=== PATIENT | female | born 1930 | race Caucasian/White ===

== ENCOUNTER 2017-10-20 18:34 | Inpatient (IN) | payer OTHER, MEDICARE ==
[~2017-10-20] VITALS: Ht 162.6 cm; Wt 68.3 kg
[~2017-10-20 18:34] MED LIST: 5-HTP100 MG PO; ADVAIR 500-501 EACH IH; ADVAIR 500/501 DISK IH; ADVANCED COLON CARE PO; ALBUTEROL SULF8.5 GM IH; ASACOL400 MG PO; ASPIRIN325 MG PO; BAL B-1001 EACH PO; BAYER ADVANCED500 MG PO; CALCIUM CITRAT250 MG PO; CLARINEX-D 241 EACH PO; CLARITIN,ALAVAR10 MG PO; COLACE100 MG PO; DELZICOL400 MG PO; DILAUDID2 MG PO; EFFEXOR75 MG PO; EYE DROPS ALLER15 ML BOTH EYES; FEVERALL325 M1 PR; GAS-X62.5 MG PO; GAVISCON ES CH1 EACH PO; HEALTHY EYES C1 EACH PO; KONSYL PSYLLIU3.4 GM PO; LEVOFLOXACIN750 MG PO; LEXAPRO10 MG PO; LIDEX60 G1 TP; LORAZEPAM1 MG PO; MAGNESIUM100 MG PO; MEGACE20 MG PO; METAMUCIL0.52 GM PO; METRONIDAZOLE500 MG PO; NASONEX17 GM BOTH NARES; PRAMIPEXOLE D0.25 M1 PO; PRILOSEC20 MG PO; PROBIOTIC 5 BI1 EACH PO; Proventil,Ventolin H IH; REFRESH OPTIVE10 ML BOTH EYES; REQUIP0.5 MG PO; REQUIP1 MG PO; RITALIN10 MG PO; RITALIN5 MG PO; SENNA LAXATIVE25 MG PO; SINGULAIR10 MG PO; SPIRIVA RESPIMAT4 GM IH; SPIRIVA1 INHALATI IH; TRAMADOL HCL50 MG PO; TRIAMCINOLONE A15 GM TP; TYLENOL REGULA325 MG PO; VITAMIN D32000 UNI1 PO; VITAMIN E400 UNIT PO; Vancocin Oral Soluti PO; ZOFRAN4 MG PO; [UNRECOGNIZED DRUG - OTHER] PO; magnesium PO
[2017-10-20 19:28] LABS: HEMATOCRIT 38.4 % (36.0-46.0); HEMOGLOBIN 12.1 G/DL (11.9-15.5); MCH 28.2 PG (29.0-34.0); MCHC 31.5 G/DL (30.0-36.0); MCV 89.5 FL (83-99); PLATELET COUNT 386 K/uL (156-360); RBC DIS.WIDTH-CV 16.8 % (11.8-14.6); RBC DIS.WIDTH-SD 54.9 % (39-53); RED BLOOD COUNT 4.29 M/uL (3.80-5.20); WHITE BLOOD COUNT 10.5 K/uL (4.1-10.2)
[2017-10-20 19:43] LABS: CHLORIDE 100 mEq/L (99-109); POTASSIUM 3.2 mEq/L (3.7-5.4); SODIUM 138 mEq/L (136-147)
[2017-10-20 19:45] LABS: GLUCOSE 228 mg/dL (70-99); TOTAL PROTEIN 6.9 g/dL (6.4-8.3)
[2017-10-20 19:47] LABS: TOTAL BILIRUBIN 0.2 mg/dL (0.0-1.0)
[2017-10-20 19:48] LABS: ALKALINE PHOSPHATASE 53 IU/L (3-129)
[2017-10-20 19:49] LABS: CREATININE 0.8 mg/dL (0.6-1.3); GFR ESTIMATE (CALCULATED) > 59 mL/min/
[2017-10-20 19:50] LABS: AST (GOT) 22 IU/L (2-34); UREA NITROGEN (BUN) 15 mg/dL (9-23)
[2017-10-20 19:52] LABS: ALT (GPT) 22 IU/L (3-49); LIPASE 7 U/L (1.0-51.0)
[2017-10-20] MEDS ORDERED: PRILOSEC20 MG PO (22:14)
[2017-10-20] MEDS ORDERED: ZOFRAN4 MG PO (22:15)
[2017-10-20] MEDS ORDERED: REQUIP2 MG PO (22:17)
[2017-10-20] MEDS ORDERED: METAMUCIL0.52 GM PO (22:17)
[2017-10-20] MEDS ORDERED: SPIRIVA1 INHALATI IH (22:18)
[2017-10-20] MEDS ORDERED: LINZESS72 MCG PO (22:19)
[2017-10-20] MEDS ORDERED: LINZESS145 MCG PO (22:19)
[2017-10-20] MEDS ORDERED: TYLENOL EXTRA500 MG PO (22:20)
[2017-10-20] MEDS ORDERED: LINZESS290 MCG PO (22:20)
[2017-10-20] MEDS ORDERED: PROMETHAZINE HC25 M1 PO (22:21)
[2017-10-20] MEDS ORDERED: SENNA8.6 MG PO ×2 (22:21)
[2017-10-20] MEDS ORDERED: LIALDA1.2 GM PO (22:22)
[2017-10-20] MEDS ORDERED: [UNRECOGNIZED DRUG - OTHER] PO (22:22)
[2017-10-20] MEDS ORDERED: ULTIMATE COLON CARE PO (22:23)
[2017-10-20] MEDS ORDERED: AZITHROMYCIN500 M1 PO (22:24)
[2017-10-20] MEDS ORDERED: [UNRECOGNIZED DRUG - CODE] PO (22:24)
[2017-10-20] MEDS ORDERED: BENTYL10 MG PO (22:25)
[2017-10-20] MEDS ORDERED: EFFEXOR XR150 MG PO (22:25)
[2017-10-20] MEDS ORDERED: VITAMIN E400 UNIT PO (22:25)
[2017-10-20] MEDS ORDERED: TRAZODONE HCL50 MG PO (22:25)
[2017-10-20] MEDS ORDERED: PROBIOTIC1 EAC2 PO (22:26)
[2017-10-20] MEDS ORDERED: CALCIUM CITRAT250 MG PO (22:26)
[2017-10-20] MEDS ORDERED: GAS-X62.5 MG PO (22:26)
[2017-10-20] MEDS ORDERED: PREDNISONE5 MG PO ×2 (22:31→22:32)
[2017-10-20] MEDS ORDERED: LITE COAT ASPI325 M1 PO (22:33)
[2017-10-21] VITALS (18 sets, daily range): BP systolic 109–164; BP diastolic 53–87
[2017-10-21 00:55] LABS: HEMOGLOBIN 11.5 G/DL (11.9-15.5); MCHC 31.9 G/DL (30.0-36.0); MCV 90.9 FL (83-99); PLATELET COUNT 343 K/uL (156-360); RBC DIS.WIDTH-CV 16.7 % (11.8-14.6); RBC DIS.WIDTH-SD 56.6 % (39-53); RED BLOOD COUNT 3.96 M/uL (3.80-5.20); WHITE BLOOD COUNT 12.6 K/uL (4.1-10.2)
[2017-10-21 01:04] LABS: CHLORIDE 103 mEq/L (99-109); POTASSIUM 3.2 mEq/L (3.7-5.4); SODIUM 141 mEq/L (136-147)
[2017-10-21 01:06] LABS: GLUCOSE 240 mg/dL (70-99)
[2017-10-21 01:10] LABS: CREATININE 1.2 mg/dL (0.6-1.3); GFR ESTIMATE (CALCULATED) 45 mL/min/
[2017-10-21 01:11] LABS: UREA NITROGEN (BUN) 17 mg/dL (9-23)
[2017-10-21 02:48] LABS: BASE EXCESS 2.8 mEq/L (-3 to +3); BICARBONATE 27.9 mEq/L (22-26); CARBOXY HGB 1.7 % (0-5); COMMENTS - BLOOD GASES C+A+; DEVICE 840 VENT; MECHANICAL RATE 12 resp/min; METHEMOGLOBIN 1.5 % (0-1.5); MODE AC; PCO2 44 mm Hg (35-45); PO2 87 mm Hg (80-100); SITE RB; TIDAL VOLUME 500 ML; TOTAL RESP RATE 12 resp/min; pH 7.41 (7.35-7.45)
[2017-10-21 02:49] LABS: FI02 40 %; PEEP 5 CM/H20
[2017-10-21 03:56] LABS: C DIFF TOXIN NEGATIVE (NEGATIVE)
[2017-10-22] VITALS (23 sets, daily range): BP systolic 100–168; BP diastolic 48–102
[2017-10-22 05:48] LABS: BASOPHIL (%) 0.1 % (0-1); EOSINOPHIL (%) 0 % (0-5); HEMATOCRIT 28.8 % (36.0-46.0); IMMATURE GRANULOCYTE (%) 0.7 % (0.0-0.7); LYMPHOCYTE (%) 12.9 % (15-42); LYMPHOCYTE COUNT 1.2 K/uL (1.0-2.8); MCH 28.2 PG (29.0-34.0); MCHC 30.6 G/DL (30.0-36.0); MCV 92.3 FL (83-99); MONOCYTE (%) 14.4 % (3-12); MONOCYTE COUNT 1.3 K/uL (0-0.8); NEUTROPHIL (%) 71.9 % (45-76); NEUTROPHIL COUNT 6.6 K/uL (1.8-6.4); PLATELET COUNT 271 K/uL (156-360); RBC DIS.WIDTH-CV 17.3 % (11.8-14.6); RBC DIS.WIDTH-SD 58.5 % (39-53); WHITE BLOOD COUNT 9.1 K/uL (4.1-10.2)
[2017-10-22 05:50] LABS: HEMOGLOBIN 8.8 G/DL (11.9-15.5); RED BLOOD COUNT 3.12 M/uL (3.80-5.20)
[2017-10-22 05:53] LABS: ALBUMIN 2.6 G/DL (3.2-4.8); ALKALINE PHOSPHATASE 34 IU/L (3-129); ALT (GPT) 12 IU/L (3-49); AST (GOT) 17 IU/L (2-34); CHLORIDE 105 MEQ/L (99-109); GLUCOSE 147 mg/dL (70-99); MAGNESIUM 3.2 mg/dl (1.3-2.7); SODIUM 138 MEQ/L (136-147); TOTAL BILIRUBIN 0.2 MG/DL (0.0-1.0); TOTAL PROTEIN 4.4 G/DL (6.4-8.3); UREA NITROGEN (BUN) 15 mg/dL (9-23)
[2017-10-22 05:54] LABS: CREATININE 0.6 MG/DL (0.6-1.3); GFR ESTIMATE (CALCULATED) > 59 mL/min/; POTASSIUM 4.3 MEQ/L (3.7-5.4)
[2017-10-23] VITALS (19 sets, daily range): BP systolic 136–183; BP diastolic 63–104
[2017-10-23 05:44] LABS: BASOPHIL (%) 0.1 % (0-1); EOSINOPHIL (%) 0 % (0-5); HEMATOCRIT 33.6 % (36.0-46.0); HEMOGLOBIN 10.3 G/DL (11.9-15.5); IMMATURE GRANULOCYTE (%) 1.6 % (0.0-0.7); LYMPHOCYTE (%) 3.2 % (15-42); LYMPHOCYTE COUNT 0.3 K/uL (1.0-2.8); MCH 27.9 PG (29.0-34.0); MCHC 30.7 G/DL (30.0-36.0); MCV 91.1 FL (83-99); MONOCYTE (%) 3.8 % (3-12); MONOCYTE COUNT 0.4 K/uL (0-0.8); NEUTROPHIL (%) 91.3 % (45-76); NEUTROPHIL COUNT 8.7 K/uL (1.8-6.4); PLATELET COUNT 328 K/uL (156-360); RBC DIS.WIDTH-CV 16.7 % (11.8-14.6); RBC DIS.WIDTH-SD 56.4 % (39-53); RED BLOOD COUNT 3.69 M/uL (3.80-5.20); WHITE BLOOD COUNT 9.5 K/uL (4.1-10.2)
[2017-10-23 06:08] LABS: CHLORIDE 103 MEQ/L (99-109); CREATININE 0.5 MG/DL (0.6-1.3); GFR ESTIMATE (CALCULATED) > 59 mL/min/; GLUCOSE 218 mg/dL (70-99); POTASSIUM 5.4 MEQ/L (3.7-5.4); SODIUM 137 MEQ/L (136-147); UREA NITROGEN (BUN) 7 mg/dL (9-23)
[2017-10-24] VITALS (12 sets, daily range): BP systolic 0–177; BP diastolic 0–116
[2017-10-24 05:19] LABS: HEMATOCRIT 33.1 % (36.0-46.0); HEMOGLOBIN 10.3 G/DL (11.9-15.5); MCH 27.8 PG (29.0-34.0); MCHC 31.1 G/DL (30.0-36.0); MCV 89.2 FL (83-99); PLATELET COUNT 374 K/uL (156-360); RBC DIS.WIDTH-CV 16.2 % (11.8-14.6); RBC DIS.WIDTH-SD 53.4 % (39-53); RED BLOOD COUNT 3.71 M/uL (3.80-5.20); WHITE BLOOD COUNT 9.2 K/uL (4.1-10.2)
[2017-10-24 05:44] LABS: CHLORIDE 103 MEQ/L (99-109); CREATININE 0.5 MG/DL (0.6-1.3); GFR ESTIMATE (CALCULATED) > 59 mL/min/; GLUCOSE 153 mg/dL (70-99); SODIUM 135 MEQ/L (136-147); UREA NITROGEN (BUN) 5 mg/dL (9-23)
[2017-10-25 03:10] VITALS: BP 147/70
[2017-10-25 06:51] LABS: HEMATOCRIT 32.4 % (36.0-46.0); HEMOGLOBIN 10.3 G/DL (11.9-15.5); MCH 28.7 PG (29.0-34.0); MCHC 31.8 G/DL (30.0-36.0); MCV 90.3 FL (83-99); PLATELET COUNT 403 K/uL (156-360); RBC DIS.WIDTH-CV 16.3 % (11.8-14.6); RBC DIS.WIDTH-SD 53.7 % (39-53); RED BLOOD COUNT 3.59 M/uL (3.80-5.20); WHITE BLOOD COUNT 9.8 K/uL (4.1-10.2)
[2017-10-25 07:09] LABS: CHLORIDE 102 MEQ/L (99-109); CREATININE 0.5 MG/DL (0.6-1.3); GFR ESTIMATE (CALCULATED) > 59 mL/min/; GLUCOSE 154 mg/dL (70-99); POTASSIUM 4.7 MEQ/L (3.7-5.4); SODIUM 135 MEQ/L (136-147); UREA NITROGEN (BUN) 6 mg/dL (9-23)
[2017-10-25 08:26] VITALS: BP 126/68
[2017-10-25 11:09] VITALS: BP 132/76
[2017-10-25 16:41] VITALS: BP 140/72
== END 2017-10-25 18:08 | disposition home or self-care (01) | DRG 354 ==
LOC: EME 18:34 → EDOF 22:04 → 4WEST 22:04 → ENRESERV 22:06 → EDOF 10-21 01:46 → 4WEST 10-21 01:49 → ENRESERV 10-24 11:20 → 2EAST 10-24 15:00
PROVIDERS: Internal Medicine; Internal Medicine Critical Care Medicine; Physician Assistant; Physician Assistant Surgical; Surgery
PROC: 0BH17EZ Insertion of Endotracheal Airway into Trachea, Via Natural or Artificial Opening (ICD-10-PCS; principal; 2017-10-20)
PROC: 0WUF0JZ Supplement Abdominal Wall with Synthetic Substitute, Open Approach (ICD-10-PCS; principal; 2017-10-20)
PROC: 5A1945Z Respiratory Ventilation, 24-96 Consecutive Hours (ICD-10-PCS; principal; 2017-10-20)
DX: K43.6 Other and unspecified ventral hernia with obstruction, without gangrene (principal); E83.51 Hypocalcemia; E86.1 Hypovolemia; J44.9 Chronic obstructive pulmonary disease, unspecified; J45.901 Unspecified asthma with (acute) exacerbation; R64 Cachexia; K50.90 Crohn's disease, unspecified, without complications; I10 Essential (primary) hypertension; G25.81 Restless legs syndrome; R07.9 Chest pain, unspecified; F41.9 Anxiety disorder, unspecified; D64.9 Anemia, unspecified; F32.9 Major depressive disorder, single episode, unspecified; J30.2 Other seasonal allergic rhinitis; L65.9 Nonscarring hair loss, unspecified; M19.042 Primary osteoarthritis, left hand; M19.041 Primary osteoarthritis, right hand; Z85.41 Personal history of malignant neoplasm of cervix uteri
CPT/HCPCS: 36415; 36600; 71045; 71046; 74177; 80048; 80053; 81003; 82803; 83690; 83735; 83880; 85025; 85027; 85652; 86140; 87070; 87205; 87493; 87641; 88302; 94002; 94003; 94640; 94640 76; 94644; 94760; 94799; 97530 GO; 99202; 99281; 99285; C1781; J0131; J0330; J0610; J0690; J1100; J1170; J1650; J1940; J2250; J2405; J2704; J2920; J2930; J3010; J3475; J3480; J7040; J7050; J7644; S0028; S0074

== ENCOUNTER 2017-11-16 19:01 | Inpatient (IN) | payer OTHER, MEDICARE ==
[~2017-11-16] VITALS: Ht 165.1 cm; Wt 75.5 kg
[~2017-11-16 19:01] MED LIST changes: +AZITHROMYCIN500 M1 PO; +BENTYL10 MG PO; +EFFEXOR XR150 MG PO; +FLONASE16 G1 BOTH NARES; +LIALDA1.2 GM PO; +LINZESS145 MCG PO; +LINZESS290 MCG PO; +LINZESS72 MCG PO; +LITE COAT ASPI325 M1 PO; -NASONEX17 GM BOTH NARES; +PREDNISONE5 MG PO; +PROBIOTIC1 EAC2 PO; +PROMETHAZINE HC25 M1 PO; +REQUIP2 MG PO; +SENNA8.6 MG PO; +TRAZODONE HCL50 MG PO; +TYLENOL EXTRA500 MG PO; +ULTIMATE COLON CARE PO; +[UNRECOGNIZED DRUG - CODE] PO; +[UNRECOGNIZED DRUG - OTHER] PO
[2017-11-16 20:17] LABS: BASOPHIL (%) 0.2 % (0-1); EOSINOPHIL (%) 0.2 % (0-5); HEMATOCRIT 36.7 % (36.0-46.0); HEMOGLOBIN 12.1 G/DL (11.9-15.5); IMMATURE GRANULOCYTE (%) 1.2 % (0.0-0.7); LYMPHOCYTE (%) 11.8 % (15-42); LYMPHOCYTE COUNT 1.4 K/uL (1.0-2.8); MONOCYTE (%) 11.9 % (3-12); MONOCYTE COUNT 1.4 K/uL (0-0.8); NEUTROPHIL (%) 74.7 % (45-76); NEUTROPHIL COUNT 9.1 K/uL (1.8-6.4); NRBC (%) 0.2 /100 WBC (0-0); RBC DIS.WIDTH-CV 16.6 % (11.8-14.6); RBC DIS.WIDTH-SD 53.1 % (39-53); RED BLOOD COUNT 4.17 M/uL (3.80-5.20); WHITE BLOOD COUNT 12.1 K/uL (4.1-10.2)
[2017-11-16 20:24] LABS: ALBUMIN 2.9 g/dL (3.2-4.8)
[2017-11-16 20:25] LABS: CHLORIDE 99 mEq/L (99-109); POTASSIUM 2.6 mEq/L (3.7-5.4); SODIUM 131 mEq/L (136-147)
[2017-11-16 20:27] LABS: GLUCOSE 180 mg/dL (70-99); TOTAL PROTEIN 4.8 g/dL (6.4-8.3)
[2017-11-16 20:29] LABS: TOTAL BILIRUBIN 0.6 mg/dL (0.0-1.0)
[2017-11-16 20:30] LABS: ALKALINE PHOSPHATASE 64 IU/L (3-129)
[2017-11-16 20:31] LABS: CREATININE 0.9 mg/dL (0.6-1.3); GFR ESTIMATE (CALCULATED) > 59 mL/min/
[2017-11-16 20:32] LABS: AST (GOT) 10 IU/L (2-34); UREA NITROGEN (BUN) 29 mg/dL (9-23)
[2017-11-16 20:33] LABS: ALT (GPT) 20 IU/L (3-49)
[2017-11-16 20:34] LABS: LIPASE 2 U/L (1.0-51.0)
[2017-11-16 21:03] LABS: PLATELET COUNT 258 K/uL (156-360)
[2017-11-16 22:07] LABS: APPEARANCE SL.HAZY ((CLEAR)); BILIRUBIN NEGATIVE; BLOOD NEGATIVE; COLOR AMBER ((YELLOW)); GLUCOSE (STRIP) NEGATIVE; KETONES 5; LEUKOCYTES SMALL; NITRITE NEGATIVE; PROTEIN (STRIP) 30; SPECIFIC GRAVITY 1.029 (1.000-1.030); UROBILINOGEN 0.2 MG/DL (0.2-1.0)
[2017-11-16 22:20] LABS: BACTERIA NONE SEEN /HPF; EPITHELIAL CELLS 1+ /HPF; HYALINE CASTS TNTC /LPF; MUCUS 1+ /LPF; RED BLOOD CELLS 0-5 /HPF (0-5); UCUL ADDED? YES; WHITE BLOOD CELLS 20-30 /HPF (0-5)
[2017-11-17 00:02] VITALS: BP 116/61
[2017-11-17 01:53] LABS: MAGNESIUM 1.9 mg/dL (1.3-2.7)
[2017-11-17 02:47] LABS: HEMATOCRIT 32.2 % (36.0-46.0); HEMOGLOBIN 10.7 G/DL (11.9-15.5); MCH 29.3 PG (29.0-34.0); MCHC 33.2 G/DL (30.0-36.0); MCV 88.2 FL (83-99); PLATELET COUNT 229 K/uL (156-360); RBC DIS.WIDTH-SD 54.4 % (39-53); RED BLOOD COUNT 3.65 M/uL (3.80-5.20); WHITE BLOOD COUNT 9.2 K/uL (4.1-10.2)
[2017-11-17 03:06] LABS: TROP-I INTERPRETATION NEGATIVE; TROPONIN-I 0.03 ng/mL (0.0-0.30)
[2017-11-17 03:31] VITALS: BP 140/69
[2017-11-17 08:06] VITALS: BP 138/63
[2017-11-17 12:24] VITALS: BP 132/63
[2017-11-17 14:45] LABS: TROP-I INTERPRETATION NEGATIVE; TROPONIN-I 0.02 ng/mL (0.0-0.30)
[2017-11-17 16:30] VITALS: BP 131/68
[2017-11-17 19:48] VITALS: BP 127/60
[2017-11-18 03:50] VITALS: BP 138/69
[2017-11-18 07:30] VITALS: BP 173/74
[2017-11-18 09:14] LABS: ALBUMIN 2.7 G/DL (3.2-4.8); ALKALINE PHOSPHATASE 44 IU/L (3-129); ALT (GPT) 14 IU/L (3-49); AST (GOT) 7 IU/L (2-34); CHLORIDE 104 MEQ/L (99-109); CREATININE 0.5 MG/DL (0.6-1.3); GFR ESTIMATE (CALCULATED) > 59 mL/min/; GLUCOSE 169 mg/dL (70-99); POTASSIUM 3.3 MEQ/L (3.7-5.4); SODIUM 137 MEQ/L (136-147); TOTAL BILIRUBIN 0.4 MG/DL (0.0-1.0); TOTAL PROTEIN 4.5 G/DL (6.4-8.3); UREA NITROGEN (BUN) 11 mg/dL (9-23)
[2017-11-18 10:25] LABS: MAGNESIUM 1.8 mg/dl (1.3-2.7)
[2017-11-18 11:41] VITALS: BP 133/73
[2017-11-18 15:22] VITALS: BP 128/78
[2017-11-19 00:04] VITALS: BP 119/58
[2017-11-19 06:56] LABS: BASOPHIL (%) 0.1 % (0-1); EOSINOPHIL (%) 0 % (0-5); HEMATOCRIT 33.3 % (36.0-46.0); HEMOGLOBIN 10.6 G/DL (11.9-15.5); IMMATURE GRANULOCYTE (%) 1.9 % (0.0-0.7); LYMPHOCYTE (%) 3.2 % (15-42); LYMPHOCYTE COUNT 0.2 K/uL (1.0-2.8); MCHC 31.8 G/DL (30.0-36.0); MCV 91.2 FL (83-99); MONOCYTE (%) 4.1 % (3-12); MONOCYTE COUNT 0.3 K/uL (0-0.8); NEUTROPHIL (%) 90.7 % (45-76); NEUTROPHIL COUNT 6.1 K/uL (1.8-6.4); PLATELET COUNT 220 K/uL (156-360); RBC DIS.WIDTH-CV 16.6 % (11.8-14.6); RBC DIS.WIDTH-SD 55.9 % (39-53); RED BLOOD COUNT 3.65 M/uL (3.80-5.20); WHITE BLOOD COUNT 6.8 K/uL (4.1-10.2)
[2017-11-19 07:32] LABS: ALBUMIN 2.9 G/DL (3.2-4.8); ALKALINE PHOSPHATASE 47 IU/L (3-129); ALT (GPT) 15 IU/L (3-49); CHLORIDE 109 MEQ/L (99-109); CREATININE 0.5 MG/DL (0.6-1.3); GFR ESTIMATE (CALCULATED) > 59 mL/min/; GLUCOSE 200 mg/dL (70-99); POTASSIUM 3.8 MEQ/L (3.7-5.4); SODIUM 140 MEQ/L (136-147); TOTAL BILIRUBIN 0.4 MG/DL (0.0-1.0); TOTAL PROTEIN 4.8 G/DL (6.4-8.3); UREA NITROGEN (BUN) 8 mg/dL (9-23)
[2017-11-19 07:34] LABS: AST (GOT) 11 IU/L (2-34)
[2017-11-19 09:06] VITALS: BP 148/78
[2017-11-19 15:54] VITALS: BP 178/89
[2017-11-19 23:22] VITALS: BP 149/78
[2017-11-20 06:27] LABS: BASOPHIL (%) 0.2 % (0-1); EOSINOPHIL (%) 0.2 % (0-5); HEMATOCRIT 30.7 % (36.0-46.0); HEMOGLOBIN 9.6 G/DL (11.9-15.5); LYMPHOCYTE (%) 17.7 % (15-42); LYMPHOCYTE COUNT 1.2 K/uL (1.0-2.8); MCH 28.2 PG (29.0-34.0); MCHC 31.3 G/DL (30.0-36.0); MCV 90.3 FL (83-99); MONOCYTE (%) 12.4 % (3-12); MONOCYTE COUNT 0.8 K/uL (0-0.8); NEUTROPHIL (%) 67.5 % (45-76); NEUTROPHIL COUNT 4.4 K/uL (1.8-6.4); PLATELET COUNT 227 K/uL (156-360); RBC DIS.WIDTH-CV 16.8 % (11.8-14.6); RBC DIS.WIDTH-SD 55.6 % (39-53); WHITE BLOOD COUNT 6.6 K/uL (4.1-10.2)
[2017-11-20 07:10] LABS: ALBUMIN 2.7 G/DL (3.2-4.8); ALKALINE PHOSPHATASE 39 IU/L (3-129); ALT (GPT) 13 IU/L (3-49); AST (GOT) 12 IU/L (2-34); CHLORIDE 109 MEQ/L (99-109); CREATININE 0.5 MG/DL (0.6-1.3); GFR ESTIMATE (CALCULATED) > 59 mL/min/; POTASSIUM 3.7 MEQ/L (3.7-5.4); SODIUM 138 MEQ/L (136-147); TOTAL BILIRUBIN 0.4 MG/DL (0.0-1.0); TOTAL PROTEIN 4.5 G/DL (6.4-8.3); UREA NITROGEN (BUN) 6 mg/dL (9-23)
[2017-11-20 07:11] LABS: GLUCOSE 83 mg/dL (70-99)
[2017-11-20 08:11] VITALS: BP 125/58; BP 125/59
[2017-11-20 12:40] VITALS: BP 149/84
[2017-11-20 16:10] VITALS: BP 144/77
[2017-11-21 00:34] VITALS: BP 138/74
[2017-11-21 07:20] LABS: BASOPHIL (%) 0.2 % (0-1); EOSINOPHIL (%) 0.2 % (0-5); HEMATOCRIT 31.7 % (36.0-46.0); HEMOGLOBIN 10.1 G/DL (11.9-15.5); IMMATURE GRANULOCYTE (%) 2.5 % (0.0-0.7); LYMPHOCYTE (%) 20.2 % (15-42); LYMPHOCYTE COUNT 1.1 K/uL (1.0-2.8); MCH 28.6 PG (29.0-34.0); MCHC 31.9 G/DL (30.0-36.0); MCV 89.8 FL (83-99); MONOCYTE (%) 14.7 % (3-12); MONOCYTE COUNT 0.8 K/uL (0-0.8); NEUTROPHIL (%) 62.2 % (45-76); NEUTROPHIL COUNT 3.3 K/uL (1.8-6.4); PLATELET COUNT 228 K/uL (156-360); RBC DIS.WIDTH-CV 17.2 % (11.8-14.6); RBC DIS.WIDTH-SD 56.4 % (39-53); RED BLOOD COUNT 3.53 M/uL (3.80-5.20); WHITE BLOOD COUNT 5.3 K/uL (4.1-10.2)
[2017-11-21 07:52] LABS: ALBUMIN 2.8 G/DL (3.2-4.8); ALKALINE PHOSPHATASE 40 IU/L (3-129); ALT (GPT) 18 IU/L (3-49); CHLORIDE 104 MEQ/L (99-109); CREATININE 0.5 MG/DL (0.6-1.3); GFR ESTIMATE (CALCULATED) > 59 mL/min/; GLUCOSE 95 mg/dL (70-99); POTASSIUM 3.5 MEQ/L (3.7-5.4); SODIUM 137 MEQ/L (136-147); TOTAL BILIRUBIN 0.4 MG/DL (0.0-1.0); TOTAL PROTEIN 4.5 G/DL (6.4-8.3); UREA NITROGEN (BUN) 6 mg/dL (9-23)
[2017-11-21 07:54] LABS: AST (GOT) 18 IU/L (2-34)
[2017-11-21 08:19] VITALS: BP 128/60
[2017-11-21 15:58] VITALS: BP 159/94
[2017-11-22] VITALS: BP 127/66
[2017-11-22 06:49] LABS: BASOPHIL (%) 0.2 % (0-1); EOSINOPHIL (%) 0.2 % (0-5); HEMATOCRIT 31.5 % (36.0-46.0); HEMOGLOBIN 9.9 G/DL (11.9-15.5); IMMATURE GRANULOCYTE (%) 3.8 % (0.0-0.7); LYMPHOCYTE (%) 22.7 % (15-42); LYMPHOCYTE COUNT 1.3 K/uL (1.0-2.8); MCH 28.2 PG (29.0-34.0); MCHC 31.4 G/DL (30.0-36.0); MCV 89.7 FL (83-99); MONOCYTE (%) 13.3 % (3-12); MONOCYTE COUNT 0.8 K/uL (0-0.8); NEUTROPHIL (%) 59.8 % (45-76); NEUTROPHIL COUNT 3.5 K/uL (1.8-6.4); PLATELET COUNT 259 K/uL (156-360); RBC DIS.WIDTH-CV 17.2 % (11.8-14.6); RBC DIS.WIDTH-SD 56.2 % (39-53); RED BLOOD COUNT 3.51 M/uL (3.80-5.20); WHITE BLOOD COUNT 5.8 K/uL (4.1-10.2)
[2017-11-22 07:09] LABS: ALBUMIN 2.8 G/DL (3.2-4.8); ALKALINE PHOSPHATASE 43 IU/L (3-129); ALT (GPT) 21 IU/L (3-49); AST (GOT) 19 IU/L (2-34); CHLORIDE 105 MEQ/L (99-109); CREATININE 0.5 MG/DL (0.6-1.3); GFR ESTIMATE (CALCULATED) > 59 mL/min/; GLUCOSE 99 mg/dL (70-99); POTASSIUM 4.1 MEQ/L (3.7-5.4); SODIUM 138 MEQ/L (136-147); TOTAL BILIRUBIN 0.4 MG/DL (0.0-1.0); TOTAL PROTEIN 4.7 G/DL (6.4-8.3); UREA NITROGEN (BUN) 6 mg/dL (9-23)
[2017-11-22 08:21] VITALS: BP 147/66
[2017-11-22 15:40] VITALS: BP 170/78
[2017-11-22 23:05] VITALS: BP 151/84
[2017-11-23 06:31] LABS: HEMATOCRIT 33.3 % (36.0-46.0); HEMOGLOBIN 10.5 G/DL (11.9-15.5); MCH 28.4 PG (29.0-34.0); MCHC 31.5 G/DL (30.0-36.0); PLATELET COUNT 288 K/uL (156-360); RBC DIS.WIDTH-CV 17.2 % (11.8-14.6); RBC DIS.WIDTH-SD 56.9 % (39-53); WHITE BLOOD COUNT 5.6 K/uL (4.1-10.2)
[2017-11-23 08:00] VITALS: BP 128/64
[2017-11-23] MEDS ORDERED: METRONIDAZOLE500 MG PO (10:37)
[2017-11-23] MEDS ORDERED: PREDNISONE10 MG PO (10:37)
== END 2017-11-23 13:38 | DRG 386 ==
LOC: EME 19:01 → EDOF 11-17 00:46 → 2EAST 11-17 00:46 → 3EAST 11-17 00:46 → ENRESERV 11-17 00:48 → 3EAST 11-17 02:15 → ENRESERV 11-17 18:28 → 2EAST 11-17 19:40
PROVIDERS: Emergency Medicine; Hospitalist; Internal Medicine; Physician Assistant
DX: K50.10 Crohn's disease of large intestine without complications (principal); K56.7 Ileus, unspecified; E87.6 Hypokalemia; F32.9 Major depressive disorder, single episode, unspecified; I10 Essential (primary) hypertension; J45.909 Unspecified asthma, uncomplicated; K21.9 Gastro-esophageal reflux disease without esophagitis; M06.9 Rheumatoid arthritis, unspecified; Z85.41 Personal history of malignant neoplasm of cervix uteri; Z88.0 Allergy status to penicillin; Z88.5 Allergy status to narcotic agent; Z91.011 Allergy to milk products; Z79.52 Long term (current) use of systemic steroids
CPT/HCPCS: 71045; 74018; 74019; 74021; 74177; 80053; 81003; 83605; 83690; 83735; 84132; 84132 91; 84484; 85025; 85027; 85652; 86140; 87086; 87177; 87329; 87493; 87506; 94640; 94640 76; 94760; 94799; 97530 GO; 97530 GP; 99202; 99281; 99285; J1644; J1940; J1956; J2405; J2765; J2930; J3480; J7030; J7050; J7512; S0030